=== PATIENT | female | born 1965 | race Hispanic/Latino ===

== ENCOUNTER 2017-10-07 07:50 | Day surgery (SDC) | payer BC ==
[2017-10-07] MEDS ORDERED: ECOTRIN PO ONE (08:53)
[2017-10-07] MEDS ORDERED: NACL 0.9% 500 ML 500 ML IV SCH (09:00)
[2017-10-07 09:07] LABS: Hematocrit 37.8 % (30.3-42.9); Hemoglobin 12.7 gm/dl (10.1-14.3); Mean Corpuscular HGB Conc 34 % (30-34); Mean Corpuscular Hemoglobin 32 pg (28-32); Mean Corpuscular Volume 96 fl (79-97); Platelet Count 199 K/mm3 (140-440); Red Blood Count 3.93 M/mm3 (3.65-5.03); Red Cell Distribution Width 13.1 % (13.2-15.2)
[2017-10-07] MEDS ORDERED: CALAN ONE (09:12)
[2017-10-07] MEDS ORDERED: XYLOCAINE 2% INFILTRATI ONE (09:12)
[2017-10-07] MEDS ORDERED: HEPARIN 10,000 UNITS/10 ML ONE (09:12)
[2017-10-07] MEDS ORDERED: HEPARIN/NS 5000 UNIT/500ML(CATH LAB) 1,000 ML IR ONE (09:12)
[2017-10-07] MEDS ORDERED: SUBLIMAZE ONE (09:13)
[2017-10-07] MEDS ORDERED: VERSED ONE (09:13)
[2017-10-07] MEDS ORDERED: NITROGLYCERIN SYRINGE 3 ML ONE (09:14)
[2017-10-07 09:17] LABS: BUN/Creatinine Ratio 24; Blood Urea Nitrogen 19 mg/dL (7-17); Calcium 9.3 mg/dL (8.4-10.2); Hemolysis Index 7
[2017-10-07 09:21] LABS: INR 0.83 (0.87-1.13)
[2017-10-07 12:17] VITALS: BP 113/59
[2017-10-07 12:25] LABS: Platelet Estimate Consistent w Auto; RBC Morphology Normal; Total Cells Counted 100
--- NOTE | 2017-10-08 13:06 | Short Stay Summary ---
Short Stay Documentation Date of service: 10/07/17 - History H&P: obtained from office - Allergies and Medications Current Medications: Allergies cefazolin [From Anc] Allergy (Verified 10/07/17 08:52) Unknown Sulfa (Sulfonamide Antibiotics) Allergy (Verified 10/07/17 08:52) Hives Home Medications Medication Instructions Recorded Confirmed Last Taken Type Atenolol [Tenormin] 25 mg PO BID 10/07/17 10/07/17 10/06/17 History 25mg Azelastine 0.1% (Nf) [Astelin (Nf)] 2 puff INNOSTRIL DAILY 10/07/17 10/07/17 History 2 Diclofenac Sodium 50 mg PO DAILY 10/07/17 10/07/17 10/06/17 History 50mg Eszopiclone [Lunesta] 3 mg PO QHS 10/07/17 10/07/17 10/06/17 History 3mg Hydrochlorothiazide 12.5 mg PO BID 10/07/17 10/07/17 10/06/17 History 12.5mg Mhqcjaju32/Folic AC/Nadh/Coq10 5 mg PO DAILY 10/07/17 10/07/17 10/06/17 History [Xyzbac Tablet] 5mg Omeprazole 50 mg PO DAILY 10/07/17 10/07/17 10/06/17 History 50mg - Brief post op/procedure progress note Date of procedure: 10/07/17 Pre-op diagnosis: chest pain Post-op diagnosis: same Procedure: C - see dictated cath report Anesthesia: local Estimated blood loss: none Condition: stable - Disposition Condition at discharge: Good Disposition: [id number] TO HOME OR SELFCARE - Discharge Diagnoses (1) Chest pain Status: Acute (2) Hyperlipidemia Status: Chronic (3) Abnormal ECG Status: Chronic Short Stay Discharge Plan Activity: advance as tolerated Diet: low cholesterol Wound: open to air, keep clean and dry, per your surgeon's advice Follow up with: BRIGITTE KAPLAN MD [Primary Care Provider] - 7 Days Forms: CardCath PCI D/C Instructions
--- NOTE | 2017-10-09 00:01 | Cardiac Catherization Report ---
REFERRING PHYSICIAN: Shivam Valencia M.D. INDICATION FOR PROCEDURE: The patient is a pleasant 52-year-old female with history of PVCs, history of congenital heart disease repair, who presents here with recurrent chest pain, referred for left heart catheterization. Risks, benefits, and potential alternatives were explained at length prior to obtaining informed consent. PROCEDURE IN DETAIL: The patient was brought to the [facility] in postabsorptive state and prepped and draped in sterile fashion. 2 mL of 2% lidocaine was used to anesthetize the right wrist. A standard 6-[place] hydrophilic sheath was used to cannulate the right radial artery via modified Seldinger technique. All exchanges were performed to exchange a J-tip guidewire. JL3.5 catheter was used to engage the left main. No dampening or ventricularization. Cineangiography performed in all projections. JR4 catheter was used to cross the aortic valve under fluoroscopic guidance. Left ventriculography performed in 30 ESPINOZA and 30 ARMENIAN projections via hand injections. Next, the catheter flushed. Manual pullback performed with continuous pressure monitoring. Catheter used to engage the right coronary. No dampening or ventricularization. Cineangiography was performed in all projections. Next, catheter removed from the body of wire and sheath removed. Manual pressure was used to achieve hemostasis. I directly supervised the administration of moderate sedation from 10:00 a.m. to 10:14 a.m. No complications noted. DATA: Aortic pressure is 110/60, LV pressure is 110, LVEP of 15 mmHg. Left ventriculography revealed normal systolic performance with estimated ejection fraction of 55% -60%. No evidence of aortic stenosis. CORONARY ANATOMY: This is a right dominant system. Right coronary is a moderate sized vessel, courses AV groove, distally bifurcates the posterior descending and posterolateral branches. No discrete stenosis identified. Left main without significant disease bifurcates the left anterior descending and left circumflex. No significant disease in the left system. CONCLUSIONS: 1. No angiographic evidence of significant epicardial coronary disease in this right dominant system. 2. Normal left ventricular systolic performance with estimated ejection fraction of 55% -60%. No evidence of aortic stenosis. 3. Normal LVEDP. The patient is clinically stable at this point and okay to be discharged home. Follow up with Dr. Valencia in the office. Results of the procedure were explained at length to the patient and family. All questions and concerns were addressed. JOB# [id number] SAIDA/ANJALI
== END 2017-10-07 12:45 | disposition home or self-care (01) ==
LOC: CR 07:50 → CATHLABREC 07:50
PROVIDERS: ATTEND Internal Medicine
DX: R07.89 Other chest pain (principal); E78.5 Hyperlipidemia, unspecified; Z87.74 Personal history of (corrected) congenital malformations of heart and circulatory system; Z88.2 Allergy status to sulfonamides; Z88.1 Allergy status to other antibiotic agents; Z79.899 Other long term (current) drug therapy
CPT/HCPCS: 36415; 80048; 85007; 85025; 85610; 85730; 93005; 93010; 93458; 99156; C1887; C1894; J1644; J2250; J3010; J7040; Q9967